=== PATIENT | female | born 1970 ===

== ENCOUNTER 2016-10-12 20:22 | Emergency (ER) | payer MEDICAID ==
[2016-10-12 21:19] VITALS: BP 119/76; PULSE 72; RESP 16; TEMP 97.8; O2SAT 100
--- NOTE | 2016-10-12 23:35 | ED PDOC ---
HPI: Back Time Seen by Provider: 10/12/16 22:17 Chief Complaint (Nursing): Back Pain Chief Complaint (Provider): Right sided lower back pain, no trauma History Per: Patient History/Exam Limitations: no limitations Onset/Duration Of Symptoms: Days (2) Current Symptoms Are (Timing): Still Present Full Body Front + Back: 1 - Pain Severity: Severe Previous Symptoms: None Additional Complaint(s): Tooker percocet earlier without relief. Past Medical History Reviewed: Historical Data, Nursing Documentation, Vital Signs Vital Signs: Last Vital Signs Temp 97.8 F 10/12/16 21:18 Pulse 72 10/12/16 21:18 Resp 16 10/12/16 21:18 BP 119/76 10/12/16 21:18 Pulse Ox 100 10/12/16 21:18 - Medical History PMH: Asthma, HTN, Kidney Stones Denies: Chronic Kidney Disease - Surgical History Surgical History: Cholecystectomy, (x 1) - Family History Family History: States: Unknown Family Hx - Immunization History Hx Tetanus Toxoid Vaccination: No Hx Influenza Vaccination: No Hx Pneumococcal Vaccination: No - Home Medications Home Medications: Ambulatory Orders Medication Instructions Recorded Metoprolol Tartrate [Lopressor] 25 mg PO BID 10/05/15 Acetaminophen/Oxycodone Hydr 1 tab PO Q6H PRN 02/03/16 [Percocet 10/325 mg Tab] Alprazolam [Xanax] 1 mg PO BID 02/03/16 Prednisone [Deltasone] 40 mg PO DAILY 02/03/16 Methadone [Methadose] 100 mg PO DAILY 10/09/16 Cyclobenzaprine [Cyclobenzaprine 10 mg PO Q8H PRN #12 tab 10/12/16 HCl] - Allergies Allergies/Adverse Reactions: Allergies Allergy/AdvReac Type Severity Reaction Status Date / Time fish derived Allergy Mild ANAPHYLAXIS Verified 10/09/16 20:11 Penicillins Allergy Mild ANAPHYLAXIS Verified 10/09/16 20:11 Review of Systems ROS Statement: Except As Marked, All Systems Reviewed And Found Negative Musculoskeletal: Positive for: Back Pain Physical Exam - Reviewed Nursing Documentation Reviewed: Yes Vital Signs Reviewed: Yes - Physical Exam Appears: Positive for: Well, Non-toxic, No Acute Distress Head Exam: Positive for: ATRAUMATIC, NORMAL INSPECTION, NORMOCEPHALIC Skin: Positive for: Normal Color, Warm, DRY Eye Exam: Positive for: Normal appearance ENT: Positive for: Normal ENT Inspection Neck: Positive for: Normal, Painless ROM Cardiovascular/Chest: Positive for: Regular Rate, Rhythm Respiratory: Positive for: Normal Breath Sounds. Negative for: Accessory Muscle Use, Respiratory Distress Back: Positive for: Normal Inspection, Muscle Spasm (Right lower ). Negative for: Vertebral Tenderness Extremity: Positive for: Other ((+) right leg raise ). Negative for: Normal ROM Neurologic/Psych: Positive for: Alert, Oriented - ECG O2 Sat by Pulse Oximetry: 100 Medical Decision Making Medical Decision Making: Pt reports feeling better after toradol and flexeril. Disposition - Clinical Impression Clinical Impression: Low back pain - Patient ED Disposition Is Patient to be Admitted: No Counseled Patient/Family Regarding: Diagnosis, Need For Followup, Rx Given - Disposition Referrals: [facility] [place] [Outside] Disposition: Routine/Home Disposition Time: 23:37 Condition: GOOD Prescriptions: Cyclobenzaprine [Cyclobenzaprine HCl] 10 mg PO Q8H PRN #12 tab PRN Reason: Muscle Spasm Instructions: Acute Low Back Pain (ED)
== END 2016-10-13 00:03 | disposition left against medical advice (07) ==
LOC: H.ER 20:22
DX: M54.5 Low back pain (principal); I10 Essential (primary) hypertension; J45.909 Unspecified asthma, uncomplicated; Z87.442 Personal history of urinary calculi; Z88.0 Allergy status to penicillin